=== PATIENT | male | born 1975 | race African-American/Black ===

== ENCOUNTER 2017-09-15 13:33 | Emergency (ER) | payer OTHER | END 2017-09-15 15:25 | disposition home or self-care (01) | LOC: ER 13:33 | DX: S83.91XA Sprain of unspecified site of right knee, initial encounter (principal); Z88.4 Allergy status to anesthetic agent; W18.39XA Other fall on same level, initial encounter; Y93.75 Activity, martial arts; Y99.8 Other external cause status; Y92.89 Other specified places as the place of occurrence of the external cause | CPT/HCPCS: 29505; 73564; 99284-25 ==

== ENCOUNTER → 2019-10-13 | Outpatient (CLI) | payer OTHER ==
[2017-09-15 13:39] VITALS: BP 147/93
[~2019-10-13] MED LIST: ALBU2.5V8 INH; AZIT250T6 PO; HYDR115S2 PO; IBUP-1007 PO; PRED50TA PO
[2019-10-13 14:01] LABS: HEMATOCRIT 39.4 % (39.0-53.0); HEMOGLOBIN 13.4 g/dL (13.0-17.5); RED BLOOD COUNT 4.59 x10^6/uL (4.30-5.70); RED CELL DISTRIBUTION WIDTH 13.6 % (11.5-14.5); WHITE BLOOD COUNT 3.5 x10^3/uL (4.0-11.0)
[2019-10-13 15:05] LABS: CREATININE 1.1 mg/dL (0.7-1.3); POTASSIUM 3.7 mmol/L (3.5-5.1); TOTAL BILIRUBIN 0.6 mg/dL (0.2-1.0); TOTAL PROTEIN 8.2 g/dL (6.4-8.2)
[2019-10-13 15:08] LABS: CHOLESTEROL/HDL RATIO 4.7
== END | disposition home or self-care (01) ==
LOC: LAB 13:27
PROVIDERS: ATTEND Nurse Practitioner Gerontology
DX: Z00.00 Encounter for general adult medical examination without abnormal findings (principal); R30.0 Dysuria; R31.9 Hematuria, unspecified
CPT/HCPCS: 80053; 80061; 85027; 87491; 87591; 87661